=== PATIENT | female | born 1945 | race Caucasian/White ===

== ENCOUNTER 2017-06-24 15:20 | Inpatient (IN) | payer MEDICARE, MEDICAID ==
[~2017-06-24] VITALS: Ht 147.3 cm; Wt 68.0 kg
[2017-06-24 15:20] VITALS: BP_SYST 100
[~2017-06-24 15:20] MED LIST: ALBU8.5H8 INH; AZEL137S7; COLE1TAB4 PO; DOXA2TAB PO; FLUT1DIS INH; METO-442 PO; MONT10TA25 PO; TRAM50TA92 PO
[2017-06-24] MEDS ORDERED: VALS160T2 PO (15:54)
[2017-06-24] MEDS ORDERED: DICL75TA5 PO (15:54)
[2017-06-24] MEDS ORDERED: OMEP-130 PO (15:54)
[2017-06-24] MEDS ORDERED: HYDR25TA4 PO (15:54)
[2017-06-24] MEDS ORDERED: MONT10TA25 PO (15:54)
[2017-06-24] MEDS ORDERED: BECL8.7A5 INH (15:54)
[2017-06-24] MEDS ORDERED: ASCO500T20 PO (15:54)
[2017-06-24] MEDS ORDERED: ASPI-1063 PO (15:54)
[2017-06-24] MEDS ORDERED: L.RH1CAP PO (15:54)
[2017-06-24] MEDS ORDERED: NACL 0.9% 1,000 ML IV SCH (15:56)
[2017-06-24 16:30] LABS: ANION GAP 10 (5-15); BASOPHILS % (AUTO) 0.1 % (0.0-2.0); CALCIUM 8.7 mg/dL (8.4-11.0); CHLORIDE 102 mmol/L (98-107); EOSINOPHILS % (AUTO) 0.1 % (0.0-4.0); GLUCOSE 114 mg/dL (70-99); HEMATOCRIT 37.9 % (36-48); HEMOGLOBIN 12.5 g/dL (12.0-16.0); LYMPHOCYTES # (AUTO) 0.7 K/uL (1.0-5.5); LYMPHOCYTES % (AUTO) 8.9 % (20.5-51.5); MEAN CORPUSCULAR HEMOGLOBIN 28 pg (27-31); MEAN CORPUSCULAR HGB CONC 33 % (32-36); MEAN CORPUSCULAR VOLUME 86 fL (79.0-98.0); MONOCYTES # (AUTO) 0.3 K/uL (0.0-1.0); MONOCYTES % (AUTO) 4.2 % (1.7-9.3); NEUTROPHILS # (AUTO) 6.8 K/uL (1.8-7.7); NEUTROPHILS % (AUTO) 86.7 % (40.0-70.0); PLATELET COUNT (AUTO) 162 K/uL (130-430); POTASSIUM 3.7 mmol/L (3.5-5.1); RED BLOOD CELL COUNT(AUTO) 4.42 MIL/uL (4.2-6.2); SODIUM SERUM 138 mmol/L (136-145); UREA NITROGEN, BLOOD 19 mg/dL (8-21); WHITE BLOOD COUNT (AUTO) 7.8 K/uL (4.8-10.8)
[2017-06-24 16:34] LABS: PROTHROMBIN TIME 11.1 SECS (9.5-12.5)
[2017-06-24 16:35] LABS: ALANINE AMINOTRANSFERASE 26 U/L (12-78); ALBUMIN 3.1 g/dL (3.4-4.8); ASPARTATE AMINOTRANSFERASE 25 U/L (10-37); TOTAL BILIRUBIN 0.4 mg/dL (0.0-1.0)
[2017-06-24] MEDS ORDERED: IPRATROPIUM/ALBUTEROL SULFATE 3 ML AMPUL.NEB ONE (16:36)
[2017-06-24] MEDS ORDERED: IPRATROPIUM/ALBUTEROL SULFATE 3 ML AMPUL.NEB INH ONE (16:45)
[2017-06-24] MEDS ORDERED: ACETAMINOPHEN 500 MG TABLET PO ONE (17:30)
[2017-06-24] MEDS ORDERED: DIPHENHYDRAMINE INJ 50 MG/ML VIAL IVP ONE (17:30)
[2017-06-24 18:20] VITALS: BP_SYST 92
[2017-06-24] MEDS ORDERED: IPRATROPIUM BROM 0.5 MG/2.5 ML VIAL.NEB (ATROVENT) INH PRN (18:30)
[2017-06-24] MEDS ORDERED: ALBUTEROL SULFATE 0.083% 2.5 MG/3 ML VIAL.NEB INH PRN (18:30)
[2017-06-24] MEDS ORDERED: FLU VACC QS 2017-18(36MOS+)/PF 0.5 ML/SYR SYRINGE I.M. PRN (18:30)
[2017-06-24] MEDS ORDERED: LEVOFLOXACIN 500 MG/D5W 100 ML IV SCH (18:30)
[2017-06-24] MEDS ORDERED: FLUTICASONE 100 mCg/SALMETEROL 50 mCg DISKUS W.DEV INH SCH (21:00)
[2017-06-24] MEDS: ALBUTEROL SULFATE 0.083% 2.5 MG/3 ML VIAL.NEB INH SCH ×2 (21:31→23:00)
[2017-06-24] MEDS: IPRATROPIUM BROM 0.5 MG/2.5 ML VIAL.NEB (ATROVENT) INH SCH ×2 (21:32→23:00)
[2017-06-24] MEDS: methylPREDNISolone SOD SUCC/PF 62.5 MG/ML VIAL IVP SCH (21:33)
[2017-06-24] MEDS: DOXAZOSIN MESYLATE 2 MG TABLET PO SCH (21:38)
[2017-06-24 21:40] VITALS: BP_SYST 110
[2017-06-24 23:40] VITALS: BP_SYST 110
[2017-06-25] MEDS: IPRATROPIUM BROM 0.5 MG/2.5 ML VIAL.NEB (ATROVENT) INH SCH ×6 (03:00→23:00)
[2017-06-25] MEDS: ALBUTEROL SULFATE 0.083% 2.5 MG/3 ML VIAL.NEB INH SCH ×6 (03:00→23:00)
[2017-06-25 04:22] VITALS: BP_SYST 94
[2017-06-25] MEDS: methylPREDNISolone SOD SUCC/PF 62.5 MG/ML VIAL IVP SCH ×3 (05:17→21:46)
[2017-06-25 08:13] VITALS: BP_SYST 122
[2017-06-25] MEDS: VALSARTAN 160 MG TABLET (DIOVAN) PO SCH (09:43)
[2017-06-25] MEDS: MONTELUKAST 10 MG TABLET PO SCH (09:43)
[2017-06-25] MEDS: METOPROLOL TARTRATE 50 MG TABLET PO SCH (09:44)
[2017-06-25] MEDS: HYDROCHLOROTHIAZIDE 25 MG TABLET (HCTZ) PO SCH (09:44)
[2017-06-25] MEDS: FLUTICASONE/VILANTEROL 1 EACH BLST.W.DEV INH SCH (09:44)
[2017-06-25] MEDS: ASCORBIC ACID 500 MG TABLET PO SCH (09:44)
[2017-06-25] MEDS: ACETAMINOPHEN 325 MG TABLET PO PRN (11:02)
[2017-06-25 12:04] VITALS: BP_SYST 107
[2017-06-25 16:58] VITALS: BP_SYST 109
[2017-06-25] MEDS ORDERED: MONTELUKAST 10 MG TABLET PO SCH (18:00)
[2017-06-25 20:00] VITALS: BP_SYST 130
[2017-06-25] MEDS: LEVOFLOXACIN 500 MG/D5W 100 ML IV SCH (20:19)
[2017-06-25] MEDS: DOXAZOSIN MESYLATE 2 MG TABLET PO SCH (20:29)
[2017-06-26] VITALS (7 sets, daily range): BP systolic 122–135
[2017-06-26] MEDS: IPRATROPIUM BROM 0.5 MG/2.5 ML VIAL.NEB (ATROVENT) INH SCH ×6 (03:00→23:00)
[2017-06-26] MEDS: ALBUTEROL SULFATE 0.083% 2.5 MG/3 ML VIAL.NEB INH SCH ×6 (03:00→23:00)
[2017-06-26] MEDS: methylPREDNISolone SOD SUCC/PF 62.5 MG/ML VIAL IVP SCH (05:05)
[2017-06-26] MEDS: FLUTICASONE/VILANTEROL 1 EACH BLST.W.DEV INH SCH (08:05)
[2017-06-26] MEDS: VALSARTAN 160 MG TABLET (DIOVAN) PO SCH (08:06)
[2017-06-26] MEDS: ASCORBIC ACID 500 MG TABLET PO SCH (08:06)
[2017-06-26] MEDS: MONTELUKAST 10 MG TABLET PO SCH (08:06)
[2017-06-26] MEDS: HYDROCHLOROTHIAZIDE 25 MG TABLET (HCTZ) PO SCH (08:06)
[2017-06-26] MEDS: METOPROLOL TARTRATE 50 MG TABLET PO SCH (08:07)
[2017-06-26] MEDS: ENOXAPARIN SODIUM 30 MG/0.3 ML SYRINGE SUBCUT SCH (10:26)
[2017-06-26] MEDS: PANTOPRAZOLE SODIUM 40 MG TAB PO SCH (10:26)
[2017-06-26] MEDS: LACTOBACILLUS RHAMNOSUS GG 1 CAP CAPSULE PO SCH ×2 (10:26→20:53)
[2017-06-26] MEDS: methylPREDNISolone SOD SUCC 40 MG/ML VIAL IVP SCH ×2 (14:44→21:27)
[2017-06-26] MEDS: DOXAZOSIN MESYLATE 2 MG TABLET PO SCH (20:53)
[2017-06-26] MEDS: LEVOFLOXACIN 500 MG/D5W 100 ML IV SCH (21:27)
[2017-06-27] MEDS: ACETAMINOPHEN 325 MG TABLET PO PRN (01:36)
[2017-06-27] MEDS: ALBUTEROL SULFATE 0.083% 2.5 MG/3 ML VIAL.NEB INH SCH ×3 (03:00→11:00)
[2017-06-27] MEDS: IPRATROPIUM BROM 0.5 MG/2.5 ML VIAL.NEB (ATROVENT) INH SCH ×3 (03:00→11:00)
[2017-06-27 04:02] VITALS: BP_SYST 106
[2017-06-27 06:43] LABS: EOSINOPHILS % (AUTO) 0.1 % (0.0-4.0); HEMATOCRIT 30.2 % (36-48); HEMOGLOBIN 9.9 g/dL (12.0-16.0); LYMPHOCYTES # (AUTO) 0.9 K/uL (1.0-5.5); LYMPHOCYTES % (AUTO) 12.2 % (20.5-51.5); MEAN CORPUSCULAR HEMOGLOBIN 28 pg (27-31); MEAN CORPUSCULAR HGB CONC 33 % (32-36); MEAN CORPUSCULAR VOLUME 85 fL (79.0-98.0); MONOCYTES # (AUTO) 0.2 K/uL (0.0-1.0); MONOCYTES % (AUTO) 2.3 % (1.7-9.3); NEUTROPHILS # (AUTO) 6.3 K/uL (1.8-7.7); NEUTROPHILS % (AUTO) 85.4 % (40.0-70.0); PLATELET COUNT (AUTO) 152 K/uL (130-430); RED BLOOD CELL COUNT(AUTO) 3.55 MIL/uL (4.2-6.2); RED CELL DISTRIBUTION WIDTH 14.5 % (9.0-15.0); WHITE BLOOD COUNT (AUTO) 7.4 K/uL (4.8-10.8)
[2017-06-27] MEDS: methylPREDNISolone SOD SUCC 40 MG/ML VIAL IVP SCH (06:43)
[2017-06-27 07:14] LABS: ALANINE AMINOTRANSFERASE 26 U/L (12-78); ALBUMIN 2.6 g/dL (3.4-4.8); ANION GAP 10 (5-15); ASPARTATE AMINOTRANSFERASE 25 U/L (10-37); CALCIUM 8.5 mg/dL (8.4-11.0); CHLORIDE 99 mmol/L (98-107); CREATININE 1.17 mg/dL (0.55-1.30); GLUCOSE 129 mg/dL (70-99); POTASSIUM 3.8 mmol/L (3.5-5.1); SODIUM SERUM 133 mmol/L (136-145); TOTAL BILIRUBIN 0.3 mg/dL (0.0-1.0); UREA NITROGEN, BLOOD 26 mg/dL (8-21)
[2017-06-27 07:35] VITALS: BP_SYST 125
[2017-06-27] MEDS ORDERED: DIPHENOXYLATE HCL/ATROP SULF 2.5 MG TAB PO ONE (09:00)
[2017-06-27] MEDS: ENOXAPARIN SODIUM 30 MG/0.3 ML SYRINGE SUBCUT SCH (09:27)
[2017-06-27] MEDS: MONTELUKAST 10 MG TABLET PO SCH (09:28)
[2017-06-27] MEDS: LACTOBACILLUS RHAMNOSUS GG 1 CAP CAPSULE PO SCH (09:28)
[2017-06-27] MEDS: VALSARTAN 160 MG TABLET (DIOVAN) PO SCH (09:28)
[2017-06-27] MEDS: PANTOPRAZOLE SODIUM 40 MG TAB PO SCH (09:28)
[2017-06-27] MEDS: ASCORBIC ACID 500 MG TABLET PO SCH (09:29)
[2017-06-27] MEDS: METOPROLOL TARTRATE 50 MG TABLET PO SCH (09:30)
[2017-06-27] MEDS: HYDROCHLOROTHIAZIDE 25 MG TABLET (HCTZ) PO SCH (09:30)
[2017-06-27 09:59] VITALS: BP_SYST 125
[2017-06-27] MEDS: FLUTICASONE/VILANTEROL 1 EACH BLST.W.DEV INH SCH (10:06)
[2017-06-27] MEDS ORDERED: LEVO500T20 PO (10:18)
[2017-06-27] MEDS ORDERED: LACT1CAP72 PO (10:18)
[2017-06-27] MEDS ORDERED: ALBU8.5H8 INH (10:19)
[2017-06-27] MEDS ORDERED: PRED20TA PO ×2 (10:20→10:21)
[2017-06-27] MEDS ORDERED: PRED10TA PO (10:21)
[2017-06-27 12:00] VITALS: BP_SYST 134
== END 2017-06-27 11:20 | disposition home or self-care (01) | DRG 871 ==
LOC: SED 15:20 → STU 17:41
PROVIDERS: ADMIT Internal Medicine Hospice and Palliative Medicine; ATTEND Internal Medicine Hospice and Palliative Medicine
DX: A41.9 Sepsis, unspecified organism (principal); J18.9 Pneumonia, unspecified organism; J96.01 Acute respiratory failure with hypoxia; E87.2 Acidosis; J44.0 Chronic obstructive pulmonary disease with (acute) lower respiratory infection; J45.901 Unspecified asthma with (acute) exacerbation; I10 Essential (primary) hypertension; A08.4 Viral intestinal infection, unspecified; J20.9 Acute bronchitis, unspecified; M19.90 Unspecified osteoarthritis, unspecified site; E78.00 Pure hypercholesterolemia, unspecified; Z96.653 Presence of artificial knee joint, bilateral; Z88.0 Allergy status to penicillin; Z88.8 Allergy status to other drugs, medicaments and biological substances; Z90.710 Acquired absence of both cervix and uterus
CPT/HCPCS: 36415; 36600; 71010; 80053; 82803-TC; 83605; 84484; 85025; 85610-TC; 85730-TC; 87040-TC; 93005; 94640; 94760; 96361; 96365; 96375; 99285; J1030; J1200; J1650; J1956; J2930; J7030; J7050; Q2037

== ENCOUNTER 2017-12-13 15:16 | Emergency (ER) | payer OTHER, MEDICAID ==
[~2017-12-13] VITALS: Ht 152.4 cm; Wt 63.0 kg
[~2017-12-13 15:16] MED LIST changes: +ASCO500T20 PO; +ASPI-1063 PO; +ASPI81TA2 PO; +AZEL137S7 NS; +BECL8.7A5 INH; +DICL75TA5 PO; +DICLOFENAC PO; +HYDR25TA4 PO; +L.RH1CAP PO; +LACT1CAP72 PO; +LEVO500T20 PO; +OMEG300C3 PO; +OMEP-130 PO; +PATANOL OP; +PRED10TA PO; +PRED20TA PO; +VALS160T2 PO; +VITA80008 PO
[2017-12-13 15:35] VITALS: BP_SYST 132
[2017-12-13 17:58] LABS: BASOPHILS % (AUTO) 0.3 % (0.0-2.0); EOSINOPHILS # (AUTO) 0.1 K/uL (0.0-0.4); EOSINOPHILS % (AUTO) 0.8 % (0.0-4.0); HEMATOCRIT 34.3 % (36-48); LYMPHOCYTES # (AUTO) 1.8 K/uL (1.0-5.5); LYMPHOCYTES % (AUTO) 15.1 % (20.5-51.5); MEAN CORPUSCULAR HEMOGLOBIN 27 pg (27-31); MEAN CORPUSCULAR HGB CONC 32 % (32-36); MEAN CORPUSCULAR VOLUME 84 fL (79.0-98.0); MONOCYTES # (AUTO) 0.4 K/uL (0.0-1.0); MONOCYTES % (AUTO) 3.8 % (1.7-9.3); NEUTROPHILS # (AUTO) 9.5 K/uL (1.8-7.7); PLATELET COUNT (AUTO) 270 K/uL (130-430); RED BLOOD CELL COUNT(AUTO) 4.11 MIL/uL (4.2-6.2); RED CELL DISTRIBUTION WIDTH 15.4 % (9.0-15.0); WHITE BLOOD COUNT (AUTO) 11.8 K/uL (4.8-10.8)
[2017-12-13 18:54] LABS: PROTHROMBIN TIME 10.6 SECS (9.5-12.5)
[2017-12-13 21:11] LABS: ANION GAP 7 (5-15); CHLORIDE 101 mmol/L (98-107); CREATININE 1.22 mg/dL (0.55-1.30); GLUCOSE 95 mg/dL (70-99); POTASSIUM 3.8 mmol/L (3.5-5.1); SODIUM SERUM 135 mmol/L (136-145); UREA NITROGEN, BLOOD 22 mg/dL (8-21)
[2017-12-13 21:31] LABS: ALANINE AMINOTRANSFERASE 18 U/L (12-78); ALBUMIN 3.3 g/dL (3.4-4.8); ASPARTATE AMINOTRANSFERASE 12 U/L (10-37); TOTAL BILIRUBIN 0.5 mg/dL (0.0-1.0)
[2017-12-13 21:35] LABS: ALCOHOL, BLOOD < 3 mg/dL (<10)
[2017-12-13 23:21] LABS: BILIRUBIN,URINE NEGATIVE (NEGATIVE); BLOOD, URINE NEGATIVE (NEGATIVE); CLARITY/URINE CLEAR (CLEAR); COLOR,URINE YELLOW (YELLOW); GLUCOSE,URINE NEGATIVE (NEGATIVE); KETONES,URINE NEGATIVE (NEGATIVE); LEUKOCYTE ESTERASE ,URINE NEGATIVE (NEGATIVE); NITRITE, URINE NEGATIVE (NEGATIVE); PROTEIN URINE NEGATIVE (NEGATIVE); UROBILINOGEN,URINE 0.2 (0.2-1.0)
[2017-12-13 23:31] LABS: BARBITURATE, URINE NEGATIVE (NEG <=200); BENZODIAZEPINE, URINE NEGATIVE (NEG <=150); CANNABINOID, URINE NEGATIVE (NEG <=50); COCAINE, URINE NEGATIVE (NEG <=150); METHAMPHETAMINES SCREEN,URINE NEGATIVE (NEG <=500); OPIATE, URINE NEGATIVE (NEG <=100); PHENCYCLIDINE SCREEN,URINE NEGATIVE (NEG <=25); UR TRICYCLIC ANTIDEPRESSANTS NEGATIVE (NEG <=300); URINE AMPHETAMINE NEGATIVE (NEG <=500); URINE METHADONE NEGATIVE (NEG <=200); URINE OXYCODONE SCREEN NEGATIVE (NEG <=100); URINE PROPOXYPHENE SCREEN NEGATIVE (NEG <=300)
[2017-12-14 00:20] VITALS: BP_SYST 127
== END 2017-12-14 00:20 | disposition home or self-care (01) ==
LOC: SED 15:16
DX: R55 Syncope and collapse (principal); I10 Essential (primary) hypertension; J44.9 Chronic obstructive pulmonary disease, unspecified; E78.00 Pure hypercholesterolemia, unspecified; Z90.710 Acquired absence of both cervix and uterus; Z88.5 Allergy status to narcotic agent; Z88.0 Allergy status to penicillin; Z88.6 Allergy status to analgesic agent; Z79.899 Other long term (current) drug therapy; Z88.8 Allergy status to other drugs, medicaments and biological substances
CPT/HCPCS: 36415; 70450; 71045; 80053; 80307; 81003; 84484; 85025; 85610; 85730; 99285; G0482

== ENCOUNTER 2018-03-15 12:00 | Inpatient (IN) | payer OTHER, MEDICAID ==
[~2018-03-15] VITALS: Ht 152.4 cm; Wt 63.0 kg
[2018-03-15 12:08] VITALS: BP_SYST 101
[2018-03-15] MEDS ORDERED: MULT PO (12:30)
[2018-03-15] MEDS ORDERED: HYDR25TA4 PO (12:30)
[2018-03-15] MEDS ORDERED: FERR-57 PO (12:30)
[2018-03-15] MEDS ORDERED: FAMO20TA8 PO (12:30)
[2018-03-15] MEDS ORDERED: OMEG300C3 PO (12:30)
[2018-03-15] MEDS ORDERED: FLO220 INH (12:30)
[2018-03-15] MEDS ORDERED: NACL 0.9% 1,000 ML IV ONE (12:40)
[2018-03-15] MEDS ORDERED: ONDANSETRON HCL 4 MG/2 ML VIAL IVP ONE (12:45)
[2018-03-15 13:13] LABS: HEMOGLOBIN 10.8 g/dL (12.0-16.0); MEAN CORPUSCULAR HEMOGLOBIN 29 pg (27-31); MEAN CORPUSCULAR HGB CONC 34 % (32-36); MEAN CORPUSCULAR VOLUME 85 fL (79.0-98.0); PLATELET COUNT (AUTO) 236 K/uL (130-430); RED BLOOD CELL COUNT(AUTO) 3.75 MIL/uL (4.2-6.2); RED CELL DISTRIBUTION WIDTH 15.7 % (9.0-15.0)
[2018-03-15 13:21] LABS: BILIRUBIN,URINE NEGATIVE (NEGATIVE); BLOOD, URINE NEGATIVE (NEGATIVE); CLARITY/URINE CLEAR (CLEAR); COLOR,URINE YELLOW (YELLOW); GLUCOSE,URINE NEGATIVE (NEGATIVE); KETONES,URINE TRACE (NEGATIVE); LEUKOCYTE ESTERASE ,URINE NEGATIVE (NEGATIVE); NITRITE, URINE NEGATIVE (NEGATIVE); PH,URINE 5.5 (5.0-8.0); PROTEIN URINE NEGATIVE (NEGATIVE); UROBILINOGEN,URINE 0.2 (0.2-1.0)
[2018-03-15 13:24] LABS: ANION GAP 9 (5-15); CALCIUM 8.4 mg/dL (8.4-11.0); CHLORIDE 93 mmol/L (98-107); CREATININE 1.29 mg/dL (0.55-1.30); GLUCOSE 122 mg/dL (70-99); POTASSIUM 3.7 mmol/L (3.5-5.1); SODIUM SERUM 129 mmol/L (136-145); UREA NITROGEN, BLOOD 22 mg/dL (8-21)
[2018-03-15 13:28] LABS: ALANINE AMINOTRANSFERASE 13 U/L (12-78); ALBUMIN 2.9 g/dL (3.4-4.8); ASPARTATE AMINOTRANSFERASE 13 U/L (10-37); LIPASE 54 U/L (73-393); TOTAL BILIRUBIN 1.2 mg/dL (0.0-1.0)
[2018-03-15 13:33] LABS: BAND % (MANUAL) 18 % (0-6); BASOPHILS % (MANUAL) 0 % (0-2); EOSINOPHILS % (MANUAL) 0 % (0-7); LYMPHOCYTES % (MANUAL) 5 % (20-46); MONOCYTES % (MANUAL) 1 % (0-11)
[2018-03-15 14:41] VITALS: BP_SYST 128
[2018-03-15] MEDS ORDERED: ALBUTEROL SULFATE 0.083% 2.5 MG/3 ML VIAL.NEB INH PRN (16:15)
[2018-03-15] MEDS ORDERED: IPRATROPIUM BROM 0.5 MG/2.5 ML VIAL.NEB (ATROVENT) INH PRN (16:15)
[2018-03-15 16:19] VITALS: BP_SYST 128
[2018-03-15 16:35] VITALS: BP_SYST 95
[2018-03-15] MEDS ORDERED: ONDANSETRON HCL 4 MG/2 ML VIAL IVP PRN (17:30)
[2018-03-15] MEDS: IPRATROPIUM BROM 0.5 MG/2.5 ML VIAL.NEB (ATROVENT) INH SCH (19:42)
[2018-03-15] MEDS: ALBUTEROL SULFATE 0.083% 2.5 MG/3 ML VIAL.NEB INH SCH (19:42)
[2018-03-15 20:00] VITALS: BP_SYST 99
[2018-03-15] MEDS: VALSARTAN 160 MG TABLET (DIOVAN) PO SCH (20:46)
[2018-03-16 03:22] VITALS: BP_SYST 117
[2018-03-16] MEDS: IPRATROPIUM BROM 0.5 MG/2.5 ML VIAL.NEB (ATROVENT) INH SCH ×3 (07:03→19:39)
[2018-03-16] MEDS: ALBUTEROL SULFATE 0.083% 2.5 MG/3 ML VIAL.NEB INH SCH ×3 (07:03→19:39)
[2018-03-16 08:00] VITALS: BP_SYST 126
[2018-03-16] MEDS: MULTIVITAMINS TAB 1 TABLET PO SCH (08:17)
[2018-03-16] MEDS: ASPIRIN 81 MG TABLET(ECOTRIN) PO SCH (08:17)
[2018-03-16] MEDS: LEVOFLOXACIN 500 MG TABLET PO SCH (08:17)
[2018-03-16] MEDS: FAMOTIDINE 20 MG TABLET PO SCH (08:17)
[2018-03-16] MEDS: VALSARTAN 160 MG TABLET (DIOVAN) PO SCH ×2 (08:17→20:36)
[2018-03-16] MEDS: METOPROLOL TARTRATE 50 MG TABLET PO SCH (08:18)
[2018-03-16] MEDS: HYDROCHLOROTHIAZIDE 25 MG TABLET (HCTZ) PO SCH (08:18)
[2018-03-16 12:28] VITALS: BP_SYST 100
[2018-03-16 15:19] VITALS: BP_SYST 101
[2018-03-16] MEDS: MONTELUKAST 10 MG TABLET PO SCH (17:13)
[2018-03-16 20:00] VITALS: BP_SYST 132
[2018-03-16] MEDS: ZOLPIDEM TARTRATE 5 MG TABLET PO SCH (20:35)
[2018-03-17] MEDS: IPRATROPIUM BROM 0.5 MG/2.5 ML VIAL.NEB (ATROVENT) INH SCH ×4 (00:34→20:10)
[2018-03-17] MEDS: ALBUTEROL SULFATE 0.083% 2.5 MG/3 ML VIAL.NEB INH SCH ×4 (00:34→20:09)
[2018-03-17] MEDS ORDERED: ALPRAZolam 0.25 MG TABLET PO PRN (01:15)
[2018-03-17 03:07] VITALS: BP_SYST 149
[2018-03-17 06:14] LABS: BASOPHILS % (AUTO) 0.1 % (0.0-2.0); EOSINOPHILS % (AUTO) 0.5 % (0.0-4.0); HEMATOCRIT 27.8 % (36-48); HEMOGLOBIN 9.3 g/dL (12.0-16.0); LYMPHOCYTES # (AUTO) 1.1 K/uL (1.0-5.5); LYMPHOCYTES % (AUTO) 12.1 % (20.5-51.5); MEAN CORPUSCULAR HEMOGLOBIN 28 pg (27-31); MEAN CORPUSCULAR HGB CONC 33 % (32-36); MEAN CORPUSCULAR VOLUME 85 fL (79.0-98.0); MONOCYTES # (AUTO) 0.4 K/uL (0.0-1.0); MONOCYTES % (AUTO) 4.6 % (1.7-9.3); NEUTROPHILS # (AUTO) 7.2 K/uL (1.8-7.7); NEUTROPHILS % (AUTO) 82.7 % (40.0-70.0); PLATELET COUNT (AUTO) 202 K/uL (130-430); RED BLOOD CELL COUNT(AUTO) 3.28 MIL/uL (4.2-6.2); RED CELL DISTRIBUTION WIDTH 15.6 % (9.0-15.0); WHITE BLOOD COUNT (AUTO) 8.7 K/uL (4.8-10.8)
[2018-03-17 06:57] LABS: ANION GAP 5 (5-15); CALCIUM 8.8 mg/dL (8.4-11.0); CHLORIDE 101 mmol/L (98-107); CREATININE 1.05 mg/dL (0.55-1.30); GLUCOSE 122 mg/dL (70-99); POTASSIUM 3.8 mmol/L (3.5-5.1); SODIUM SERUM 134 mmol/L (136-145); UREA NITROGEN, BLOOD 14 mg/dL (8-21)
[2018-03-17 08:00] VITALS: BP_SYST 147
[2018-03-17] MEDS: VALSARTAN 160 MG TABLET (DIOVAN) PO SCH ×2 (08:17→22:10)
[2018-03-17] MEDS: MULTIVITAMINS TAB 1 TABLET PO SCH (08:18)
[2018-03-17] MEDS: HYDROCHLOROTHIAZIDE 25 MG TABLET (HCTZ) PO SCH (08:18)
[2018-03-17] MEDS: ASPIRIN 81 MG TABLET(ECOTRIN) PO SCH (08:18)
[2018-03-17] MEDS: FAMOTIDINE 20 MG TABLET PO SCH (08:18)
[2018-03-17] MEDS: LEVOFLOXACIN 500 MG TABLET PO SCH (08:18)
[2018-03-17] MEDS: METOPROLOL TARTRATE 50 MG TABLET PO SCH (08:19)
[2018-03-17 12:45] VITALS: BP_SYST 130
[2018-03-17 16:59] VITALS: BP_SYST 144
[2018-03-17] MEDS: FLUTICASONE PROPIONATE 50 mCg/SPRAY 16 GM NS SCH ×2 (17:32→22:11)
[2018-03-17] MEDS: MONTELUKAST 10 MG TABLET PO SCH (17:32)
[2018-03-17 20:16] VITALS: BP_SYST 133
[2018-03-17] MEDS: ZOLPIDEM TARTRATE 5 MG TABLET PO SCH (22:10)
[2018-03-18 00:23] VITALS: BP_SYST 113
[2018-03-18] MEDS: ALBUTEROL SULFATE 0.083% 2.5 MG/3 ML VIAL.NEB INH SCH ×3 (01:34→13:57)
[2018-03-18] MEDS: IPRATROPIUM BROM 0.5 MG/2.5 ML VIAL.NEB (ATROVENT) INH SCH ×3 (01:34→13:58)
[2018-03-18 08:00] VITALS: BP_SYST 126
[2018-03-18] MEDS: MULTIVITAMINS TAB 1 TABLET PO SCH (09:12)
[2018-03-18] MEDS: LEVOFLOXACIN 500 MG TABLET PO SCH (09:13)
[2018-03-18] MEDS: HYDROCHLOROTHIAZIDE 25 MG TABLET (HCTZ) PO SCH (09:13)
[2018-03-18] MEDS: FAMOTIDINE 20 MG TABLET PO SCH (09:14)
[2018-03-18] MEDS: METOPROLOL TARTRATE 50 MG TABLET PO SCH (09:14)
[2018-03-18] MEDS: ASPIRIN 81 MG TABLET(ECOTRIN) PO SCH (09:14)
[2018-03-18] MEDS: VALSARTAN 160 MG TABLET (DIOVAN) PO SCH (09:14)
[2018-03-18] MEDS: FLUTICASONE PROPIONATE 50 mCg/SPRAY 16 GM NS SCH (09:15)
[2018-03-18 12:35] VITALS: BP_SYST 109
[2018-03-18 16:36] VITALS: BP_SYST 120
[2018-03-18] MEDS ORDERED: LEVO500T20 PO (16:42)
[2018-03-18 16:43] VITALS: BP_SYST 119
[2018-03-18 17:35] VITALS: BP_SYST 119
[2018-03-18] MEDS: MONTELUKAST 10 MG TABLET PO SCH (17:54)
== END 2018-03-18 19:30 | disposition home or self-care (01) | DRG 871 ==
LOC: SED 12:00 → SMU 14:13
PROVIDERS: ADMIT Internal Medicine Hospice and Palliative Medicine; ATTEND Internal Medicine Hospice and Palliative Medicine
DX: A41.9 Sepsis, unspecified organism (principal); J69.0 Pneumonitis due to inhalation of food and vomit; E87.1 Hypo-osmolality and hyponatremia; E78.5 Hyperlipidemia, unspecified; Z96.653 Presence of artificial knee joint, bilateral; D64.9 Anemia, unspecified; I10 Essential (primary) hypertension; N28.1 Cyst of kidney, acquired; R09.02 Hypoxemia; J44.9 Chronic obstructive pulmonary disease, unspecified; K57.90 Diverticulosis of intestine, part unspecified, without perforation or abscess without bleeding; M19.90 Unspecified osteoarthritis, unspecified site; K44.9 Diaphragmatic hernia without obstruction or gangrene; Z90.710 Acquired absence of both cervix and uterus; Z88.0 Allergy status to penicillin; Z88.6 Allergy status to analgesic agent; Z88.1 Allergy status to other antibiotic agents; Z88.5 Allergy status to narcotic agent; Z88.8 Allergy status to other drugs, medicaments and biological substances; Z79.899 Other long term (current) drug therapy; Z79.82 Long term (current) use of aspirin; Z79.2 Long term (current) use of antibiotics
CPT/HCPCS: 36415; 71045; 80048; 80053; 81003; 83605; 83690-TC; 84484; 85007; 85025; 85027; 87040-TC; 87086; 93005; 94640; 94760; 96361; 96365; 96375; 99291; J1956; J2405; J7030; J7613

== ENCOUNTER 2019-10-06 10:05 | Inpatient (IN) | payer OTHER, MEDICAID ==
[~2019-10-06] VITALS: Ht 152.4 cm; Wt 77.1 kg
[~2019-10-06 10:05] MED LIST changes: -ASPI-1063 PO; +ASPI-1153 PO; -ASPI81TA2 PO; -AZEL137S7; -BECL8.7A5 INH; -DICL75TA5 PO; -DICLOFENAC PO; -DOXA2TAB PO; +FAMO20TA8 PO; +FERR-57 PO; +FLO220 INH; -FLUT1DIS INH; -LACT1CAP72 PO; +MULT PO; -OMEP-130 PO; -PRED10TA PO; -PRED20TA PO
[2019-10-06 10:32] VITALS: BP_SYST 159
[2019-10-06] MEDS ORDERED: metroNIDAZOLE 500 mg/NS 100 ML IV ONE (10:45)
[2019-10-06] MEDS ORDERED: CLINDAMYCIN 900 mg/50mL D5W 50 ML IV ONE (10:45)
[2019-10-06 10:56] LABS: BASOPHILS # (AUTO) 0.1 K/uL (0.0-0.2); BASOPHILS % (AUTO) 0.6 % (0.0-2.0); EOSINOPHILS # (AUTO) 0.1 K/uL (0.0-0.4); EOSINOPHILS % (AUTO) 0.9 % (0.0-4.0); HEMATOCRIT 33.1 % (36-48); HEMOGLOBIN 10.6 g/dL (12.0-16.0); LYMPHOCYTES # (AUTO) 2.3 K/uL (1.0-5.5); LYMPHOCYTES % (AUTO) 27.1 % (20.5-51.5); MEAN CORPUSCULAR HEMOGLOBIN 25 pg (27-31); MEAN CORPUSCULAR HGB CONC 32 % (32-36); MEAN CORPUSCULAR VOLUME 77 fL (79.0-98.0); MONOCYTES # (AUTO) 0.4 K/uL (0.0-1.0); NEUTROPHILS # (AUTO) 5.6 K/uL (1.8-7.7); NEUTROPHILS % (AUTO) 66.4 % (40.0-70.0); PLATELET COUNT (AUTO) 194 K/uL (130-430); RED CELL DISTRIBUTION WIDTH 18.8 % (9.0-15.0); WHITE BLOOD COUNT (AUTO) 8.5 K/uL (4.8-10.8)
[2019-10-06 11:13] LABS: PROTHROMBIN TIME 10.2 SECS (9.5-12.5)
[2019-10-06 11:25] LABS: ANION GAP 6 (5-15); CALCIUM 8.2 mg/dL (8.4-11.0); CHLORIDE 104 mmol/L (98-107); CREATININE 0.96 mg/dL (0.55-1.30); GLUCOSE 87 mg/dL (70-99); POTASSIUM 3.7 mmol/L (3.5-5.1); SODIUM SERUM 140 mmol/L (136-145); UREA NITROGEN, BLOOD 25 mg/dL (8-21)
[2019-10-06 11:31] LABS: ALANINE AMINOTRANSFERASE 26 U/L (12-78); ALBUMIN 3.3 g/dL (3.4-4.8); ASPARTATE AMINOTRANSFERASE 15 U/L (10-37); TOTAL BILIRUBIN 0.8 mg/dL (0.0-1.0)
[2019-10-06] MEDS ORDERED: D5NS 1,000 ML IV ONE (15:15)
[2019-10-06] MEDS ORDERED: ONDANSETRON HCL 4 MG/2 ML VIAL IVP PRN (18:30)
[2019-10-06] MEDS ORDERED: MORPHINE 4 MG/ML INJ. SYRINGE IVP PRN (18:30)
[2019-10-06] MEDS ORDERED: MORPHINE 2 MG/ML INJ. SYRINGE IVP PRN (18:30)
[2019-10-06] MEDS ORDERED: METOCLOPRAMIDE HCL 10 MG/2 ML VIAL IVP PRN (18:30)
[2019-10-06] MEDS ORDERED: ACETAMINOPHEN 500 MG TABLET PO ONE (22:00)
[2019-10-06] MEDS ORDERED: ACETAMINOPHEN 500 MG TABLET ONE (22:15)
[2019-10-06 22:26] VITALS: BP_SYST 132
[2019-10-07] MEDS ORDERED: METOPROLOL TARTRATE 50 MG TABLET PO SCH (09:00)
[2019-10-07] MEDS ORDERED: MONTELUKAST 10 MG TABLET PO SCH (18:00)
== END 2019-10-06 22:26 | disposition home or self-care (01) | DRG 395 ==
LOC: SED 10:05 → SMU 15:11
PROVIDERS: ADMIT Internal Medicine Hospice and Palliative Medicine; ATTEND Internal Medicine Hospice and Palliative Medicine
DX: K40.31 Unilateral inguinal hernia, with obstruction, without gangrene, recurrent (principal); J44.9 Chronic obstructive pulmonary disease, unspecified; E78.00 Pure hypercholesterolemia, unspecified; I10 Essential (primary) hypertension; K64.8 Other hemorrhoids; M19.90 Unspecified osteoarthritis, unspecified site; Z79.899 Other long term (current) drug therapy; Z79.82 Long term (current) use of aspirin; Z88.0 Allergy status to penicillin; Z88.5 Allergy status to narcotic agent; Z88.1 Allergy status to other antibiotic agents; Z88.8 Allergy status to other drugs, medicaments and biological substances
CPT/HCPCS: 36415; 80053; 83605; 84484; 85025; 85610-TC; 85730-TC; 87040-TC; 93005; 96365; 96366; 96367; 99285; J1956; J3490; J7042

== ENCOUNTER 2019-10-11 18:50 | Emergency (ER) | payer OTHER, MEDICAID ==
[~2019-10-11] VITALS: Ht 152.4 cm; Wt 90.7 kg
[2019-10-11 19:13] VITALS: BP_SYST 159
--- NOTE | 2019-10-11 19:24 | NUR ---
Patient triaged and placed in waiting room. VSS and patient appears in no acute distress at this time. Accompanied by son and daughter in law, awaiting available bed, and MD notified of need for MSE.
[2019-10-11 20:39] LABS: BASOPHILS % (AUTO) 0.4 % (0.0-2.0); EOSINOPHILS % (AUTO) 0.6 % (0.0-4.0); HEMOGLOBIN 10.6 g/dL (12.0-16.0); LYMPHOCYTES # (AUTO) 1.4 K/uL (1.0-5.5); LYMPHOCYTES % (AUTO) 17.4 % (20.5-51.5); MEAN CORPUSCULAR HEMOGLOBIN 25 pg (27-31); MEAN CORPUSCULAR HGB CONC 32 % (32-36); MEAN CORPUSCULAR VOLUME 77 fL (79.0-98.0); MONOCYTES # (AUTO) 0.4 K/uL (0.0-1.0); MONOCYTES % (AUTO) 4.7 % (1.7-9.3); NEUTROPHILS # (AUTO) 6.4 K/uL (1.8-7.7); NEUTROPHILS % (AUTO) 76.9 % (40.0-70.0); PLATELET COUNT (AUTO) 204 K/uL (130-430); RED BLOOD CELL COUNT(AUTO) 4.27 MIL/uL (4.2-6.2); RED CELL DISTRIBUTION WIDTH 19.2 % (9.0-15.0); WHITE BLOOD COUNT (AUTO) 8.3 K/uL (4.8-10.8)
--- NOTE | 2019-10-11 20:43 | NUR ---
Placed in room 3 . Placed on cardiac sonographer, blood pressure machine and pulse oximeter. To gown for exam. Side rails up. Report given to [facility].
[2019-10-11 20:52] LABS: ANION GAP 6 (5-15); CALCIUM 8.6 mg/dL (8.4-11.0); CHLORIDE 104 mmol/L (98-107); CREATININE 1.29 mg/dL (0.55-1.30); GLUCOSE 93 mg/dL (70-99); SODIUM SERUM 138 mmol/L (136-145); UREA NITROGEN, BLOOD 26 mg/dL (8-21)
[2019-10-11 20:54] LABS: ALANINE AMINOTRANSFERASE 27 U/L (12-78); ALBUMIN 3.3 g/dL (3.4-4.8); ASPARTATE AMINOTRANSFERASE 17 U/L (10-37); LIPASE 123 U/L (73-393); TOTAL BILIRUBIN 0.3 mg/dL (0.0-1.0)
--- NOTE | 2019-10-11 21:01 | NUR ---
Pt AAOx4 presents to ED via wheelchair c/o 05/06 pain to RLQ abdomen possibly r/t R inguinal hernia diagnosed x 5 years ago. Pt was scheduled to have surgery x [address] Anna, part of Dr. Esquivel's office. However, the complete team was not available for the operation and was rescheduled. Pt could not tolerate pain while waiting for scheduling. Pain increases upon palpation. Last meal was 4pm tonight. Last urine output at 2044. No other injuries/complaints per pt/noted. Son at bedside. Will continue to monitor.
[2019-10-11 21:19] LABS: BILIRUBIN,URINE NEGATIVE (NEGATIVE); BLOOD, URINE NEGATIVE (NEGATIVE); CLARITY/URINE CLEAR (CLEAR); COLOR,URINE YELLOW (YELLOW); GLUCOSE,URINE NEGATIVE (NEGATIVE); KETONES,URINE NEGATIVE (NEGATIVE); LEUKOCYTE ESTERASE ,URINE TRACE (NEGATIVE); NITRITE, URINE NEGATIVE (NEGATIVE); PROTEIN URINE NEGATIVE (NEGATIVE); UROBILINOGEN,URINE 0.2 (0.2-1.0)
[2019-10-11 21:36] LABS: BACTERIA,URINE FEW /HPF (None Seen); RBC,URINE 0-3 /HPF (0-3)
--- NOTE | 2019-10-11 21:40 | NUR ---
Ploi carreno in [facility] - 10/11/19 at 2148 by [email or web address] CHRISTOPHER Thrasher at bedside examining patient.
--- NOTE | 2019-10-11 21:41 | NUR ---
ER Dr. Thrasher at bedside examining patient.
[2019-10-11] MEDS ORDERED: traMADol HCL HCL 50 MG TABLET (ULTRAM) PO ONE (22:00)
[2019-10-11 22:20] VITALS: BP_SYST 150
--- NOTE | 2019-10-11 22:20 | NUR ---
Patient given written and verbal discharge instructions and verbalizes understanding. ER MD Dr. Thrasher discussed with patient the results and treatment provided. Patient in stable condition. ID arm band removed. Rx Cipro and Tramadol given. Patient educated on pain management, antibiotic regimen, and to follow up with PMD. Pain Scale 9/10. Opportunity for questions provided and answered. Medication side effect fact sheet provided.
== END 2019-10-11 22:20 | disposition home or self-care (01) ==
LOC: SED 18:50
DX: K40.90 Unilateral inguinal hernia, without obstruction or gangrene, not specified as recurrent (principal); N39.0 Urinary tract infection, site not specified; J44.9 Chronic obstructive pulmonary disease, unspecified; I10 Essential (primary) hypertension; Z88.0 Allergy status to penicillin; Z88.5 Allergy status to narcotic agent; Z88.6 Allergy status to analgesic agent; Z88.1 Allergy status to other antibiotic agents; Z79.899 Other long term (current) drug therapy; Z79.82 Long term (current) use of aspirin
CPT/HCPCS: 36415; 80053; 81000-TC; 83690-TC; 85025; 87086; 99284

== ENCOUNTER 2019-10-24 08:50 | Day surgery (SDC) | payer OTHER, MEDICAID ==
[~2019-10-24] VITALS: Ht 149.9 cm; Wt 79.8 kg
[~2019-10-24 08:50] MED LIST changes: +CLINDAMYCIN 600 mg/50mL D5W 50 ML IV ONE
[2019-10-24] MEDS ORDERED: ALBUTEROL SULFATE 0.083% 2.5 MG/3 ML VIAL.NEB INH ONE ×2 (10:45→11:09)
[2019-10-24] MEDS ORDERED: DEXAMETHASONE SOD PHOSPHATE 4 MG/ML VIAL IVP ONE (11:19)
[2019-10-24] MEDS ORDERED: LR 1,000 ML IV.SOLN IV ONE (11:19)
[2019-10-24] MEDS ORDERED: ePHEDrine sulfate 50 MG/ML VIAL IVP ONE (11:19)
[2019-10-24] MEDS ORDERED: methylPREDNISolone SOD SUCC/PF 62.5 MG/ML VIAL IVP ONE (11:19)
[2019-10-24] MEDS ORDERED: ROCURONIUM BROMIDE 10 MG/ML (ZEMURON) IV ONE (11:19)
[2019-10-24] MEDS ORDERED: SUCCINYLCHOLINE CHLORIDE 20 MG/ML(QUELICIN) IVP ONE (11:19)
[2019-10-24] MEDS ORDERED: PIPERACILLIN/TAZOBACTAM 3.375 GM/VIAL (ZOSYN) IV ONE (11:19)
[2019-10-24] MEDS ORDERED: WATER FOR IRRIGATION,STERILE 1,000 ML IRRIG.SOLN IR ONE (11:19)
[2019-10-24] MEDS ORDERED: ONDANSETRON HCL 4 MG/2 ML VIAL IVP ONE (11:19)
[2019-10-24] MEDS ORDERED: ISOFLURANE 15 MIN GAS INH ONE (11:19)
[2019-10-24] MEDS ORDERED: PROPOFOL 200MG/ 20ML VIAL (DIPRIVAN) IV ONE (11:19)
[2019-10-24] MEDS ORDERED: fentaNYL CITRATE/PF 100 MCG/2 ML AMP IVP ONE (11:19)
[2019-10-24] MEDS ORDERED: ONDANSETRON HCL 4 MG/2 ML VIAL IVP PRN ×2 (12:15→18:00)
[2019-10-24] MEDS ORDERED: POLYMYXIN 500,000/BACIT.10,000 UNITS in NS IRR 1 L IR ONE (12:51)
[2019-10-24] MEDS: fentaNYL CITRATE/PF 100 MCG/2 ML AMP IVP PRN ×2 (15:05→15:15)
[2019-10-24] MEDS ORDERED: ONDANSETRON HCL 4 MG/2 ML VIAL ONE ×2 (15:20→18:37)
[2019-10-24] MEDS ORDERED: fentaNYL CITRATE/PF 100 MCG/2 ML AMP ONE (15:23)
[2019-10-24] MEDS ORDERED: PROMETHAZINE INJ.Non-Formulary 25 MG/ML AMP IVP ONE (16:00)
[2019-10-24] MEDS ORDERED: HYDROcodone/ACETAMIN 5-325 MG TAB (NORCO/ VICODIN) PO ONE (18:00)
[2019-10-24] MEDS ORDERED: fentaNYL CITRATE/PF 100 MCG/2 ML AMP IVP PRN (18:00)
[2019-10-24] MEDS ORDERED: HYDROcodone/ACETAMIN 5-325 MG TAB (NORCO/ VICODIN) PO PRN (18:00)
[2019-10-24] MEDS ORDERED: ALBUTEROL MDI INHALATION 8 GM INH INH PRN (18:15)
[2019-10-24] MEDS ORDERED: traMADol HCL HCL 50 MG TABLET (ULTRAM) PO PRN (18:15)
[2019-10-24] MEDS ORDERED: HYDROcodone/ACETAMIN 5-325 MG TAB (NORCO/ VICODIN) ONE (18:17)
--- NOTE | 2019-10-24 18:30 | NUR ---
received patient from surgery alert oriented x3 resp even and unlabored SPo2 94% on room air. encouraged and educated on use of I/S Currently up to 500L. Abdomen with decreased bowel sounds to all quad. abdomen with x3 small non sutchered wounds with scant serosanginous drainage. VSS no s&S of acute cardiac or resp distress. call light within reach hob up 35 degrees. son is at bedside. bp 131/75 p88 7/10 temp 98
[2019-10-24] MEDS ORDERED: BUDESONIDE 0.5 MG/2 ML AMPUL.NEB INH SCH (19:00)
--- NOTE | 2019-10-24 19:00 | NUR ---
OPENING NOTES Receive report from morning shift nurse. Patient post op robotic right inguinal hernia repair. Patient AOx4, family at bedside. No signs of respiratory distress noted. Denies pain and discomfort at this time. Morning shift nurse verbalized that o2 saturation goes down to 89% when patient is not deep breathing on room air. Upon assessment patient is satting at 93% room air Patient educated the purpose and benefits and IS and breathing exercise post op surgery, patient verbalized understanding. IV site, patency noted. Call light within reach, patient educated to use call light when assistance is needed, pt verbalized understanding. Bed locked and in lowest position. Safety precautions in place. Will continue to monitor.
[2019-10-24] MEDS: NORMAL SALINE 5 ML DISP.SYRIN IVF SCH (20:52)
--- NOTE | 2019-10-24 20:52 | NUR ---
MED PASS Due medications in given at this time. Patient educated on purpose and benefits of Neurontin. Patient verbalized understanding. NO signs of respiratory distress and discomfort noted. Breathing even an unlabored. Safety precautions in place. Will continue to monitor patient.
[2019-10-24] MEDS ORDERED: FLUTICASONE PROPIONATE INH SCH (21:00)
[2019-10-24] MEDS ORDERED: VALSARTAN 160 MG TABLET (DIOVAN) PO SCH (21:00)
[2019-10-24] MEDS ORDERED: GABAPENTIN 300 MG CAPSULE PO SCH (21:00)
[2019-10-24 21:02] VITALS: BP_SYST 120
--- NOTE | 2019-10-24 23:30 | NUR ---
RN ROUNDS Patient asleep at this time. No signs of respiratory distress and discomfort noted. Breathing even and unlabored. On 2L of oxygen via nasal cannula, attached and secured. HOB raised. Call light within reach Safety precautions in place. Will continue to monitor patient.
[2019-10-25] VITALS: BP_SYST 112
[2019-10-25 03:33] VITALS: BP_SYST 120
[2019-10-25] MEDS: NORMAL SALINE 5 ML DISP.SYRIN IVF SCH (06:19)
--- NOTE | 2019-10-25 06:29 | NUR ---
CLOSING NOTES Patient awake. No signs of respiratory distress noted. Denies pain and discomfort at this time. IV site, patency noted. Breathing even and unlabored. Call light within reach.Bed locked and in lowest position. Safety precautions in place. All needs met throughout the shift. Will continue to monitor until endorsed to oncoming shift nurse for continuity of care.
--- NOTE | 2019-10-25 07:29 | NUR ---
Am Rounds: Received report from night nurse [place],patient lying on the bed. Call light with in reach. Bed locked at lowest position. Encourage to call for assistance when getting out on the bed.Patient understand the instructions given. No acute distress this time.
[2019-10-25 08:10] VITALS: BP_SYST 104
[2019-10-25] MEDS ORDERED: METOPROLOL TARTRATE 50 MG TABLET PO SCH (09:00)
[2019-10-25] MEDS ORDERED: HYDROCHLOROTHIAZIDE 25 MG TABLET (HCTZ) PO SCH (09:00)
[2019-10-25] MEDS ORDERED: ENOXAPARIN SODIUM 40 MG/0.4 ML SYRINGE SUBCUT SCH (09:00)
[2019-10-25] MEDS ORDERED: LOSARTAN POTASSIUM 50 MG TABLET (COZAAR) PO SCH (09:00)
[2019-10-25] MEDS ORDERED: FAMOTIDINE 20 MG TABLET PO SCH (09:00)
[2019-10-25] MEDS ORDERED: ASPIRIN 81 MG TABLET(ECOTRIN) PO SCH (09:00)
[2019-10-25] MEDS ORDERED: MULTIVITAMINS TAB 1 TABLET PO SCH (09:00)
--- NOTE | 2019-10-25 09:00 | NUR ---
Rn Rounds: Patient ambulated to the toilet. With steady gait. stable.
[2019-10-25 12:00] VITALS: BP_SYST 93
--- NOTE | 2019-10-25 12:00 | NUR ---
lunch: Patient having lunch. No complained made.
[2019-10-25 15:52] VITALS: BP_SYST 93
[2019-10-25 17:13] VITALS: BP_SYST 116
--- NOTE | 2019-10-25 17:45 | NUR ---
D/C Patient Patient given medication reconciliation form and D/C instructions. Exit Care provided. Patient verbalized understanding. MD discussed with patient the results and treatment provided. Ambulatory with steady gait for discharge to home. Patient in stable condition, ID band removed. IV catheter removed, intact and dressing applied, no active bleeding. Rx of Staley given. Patient educated on pain management. All belongings sent with patient.
[2019-10-25] MEDS ORDERED: MONTELUKAST 10 MG TABLET PO SCH (18:00)
== END 2019-10-25 17:45 | disposition home or self-care (01) ==
LOC: SMU 08:50 → SDS 08:50 → SMU 20:52 → SDS 10-25 17:45
PROVIDERS: ATTEND Surgery
DX: K40.31 Unilateral inguinal hernia, with obstruction, without gangrene, recurrent (principal); M19.90 Unspecified osteoarthritis, unspecified site; E66.9 Obesity, unspecified; J45.909 Unspecified asthma, uncomplicated; K21.9 Gastro-esophageal reflux disease without esophagitis; I10 Essential (primary) hypertension; Z79.899 Other long term (current) drug therapy; Z88.0 Allergy status to penicillin; Z88.5 Allergy status to narcotic agent; Z88.1 Allergy status to other antibiotic agents; Z88.8 Allergy status to other drugs, medicaments and biological substances; Z96.659 Presence of unspecified artificial knee joint; Z90.710 Acquired absence of both cervix and uterus
CPT/HCPCS: 49651; 94640; 94760; C1727; C1781; J0330; J1100; J1650; J2405; J2543; J2704; J2930; J3010; J3490; J7120; J7613; S2900

== ENCOUNTER 2020-01-25 18:37 | Inpatient (IN) | payer OTHER, MEDICAID ==
[~2020-01-25] VITALS: Ht 149.9 cm; Wt 82.3 kg
[~2020-01-25 18:37] MED LIST changes: -CLINDAMYCIN 600 mg/50mL D5W 50 ML IV ONE
[2020-01-25 19:10] VITALS: BP_SYST 130
[2020-01-25 19:40] LABS: BASOPHILS % (AUTO) 0.1 % (0.0-2.0); HEMATOCRIT 31.9 % (36-48); HEMOGLOBIN 10.3 g/dL (12.0-16.0); LYMPHOCYTES # (AUTO) 0.7 K/uL (1.0-5.5); LYMPHOCYTES % (AUTO) 6.5 % (20.5-51.5); MEAN CORPUSCULAR HEMOGLOBIN 26 pg (27-31); MEAN CORPUSCULAR HGB CONC 32 % (32-36); MEAN CORPUSCULAR VOLUME 79 fL (79.0-98.0); MONOCYTES # (AUTO) 0.1 K/uL (0.0-1.0); MONOCYTES % (AUTO) 0.8 % (1.7-9.3); NEUTROPHILS % (AUTO) 92.6 % (40.0-70.0); PLATELET COUNT (AUTO) 219 K/uL (130-430); RED BLOOD CELL COUNT(AUTO) 4.04 MIL/uL (4.2-6.2); RED CELL DISTRIBUTION WIDTH 17.4 % (9.0-15.0); WHITE BLOOD COUNT (AUTO) 10.8 K/uL (4.8-10.8)
[2020-01-25 19:42] LABS: ANION GAP 13 (5-15); CHLORIDE 102 mmol/L (98-107); CREATININE 1.45 mg/dL (0.55-1.30); GLUCOSE 258 mg/dL (70-99); POTASSIUM 3.8 mmol/L (3.5-5.1); SODIUM SERUM 136 mmol/L (136-145); UREA NITROGEN, BLOOD 29 mg/dL (8-21)
[2020-01-25] MEDS ORDERED: methylPREDNISolone SOD SUCC/PF 62.5 MG/ML VIAL IVP ONE (19:45)
[2020-01-25] MEDS ORDERED: IPRATROPIUM BROM 0.5 MG/2.5 ML VIAL.NEB (ATROVENT) INH ONE (19:45)
[2020-01-25] MEDS ORDERED: ALBUTEROL SULFATE 0.083% 2.5 MG/3 ML VIAL.NEB INH ONE (19:45)
[2020-01-25 19:48] LABS: ALANINE AMINOTRANSFERASE 25 U/L (12-78); ALBUMIN 3.1 g/dL (3.4-4.8); ASPARTATE AMINOTRANSFERASE 18 U/L (10-37); TOTAL BILIRUBIN 0.4 mg/dL (0.0-1.0)
[2020-01-25] MEDS ORDERED: FLUT12AE3 BC (21:26)
[2020-01-25] MEDS ORDERED: PRED5TAB PO (21:26)
[2020-01-25] MEDS ORDERED: AZEL137S7 NS (21:26)
[2020-01-25 22:29] VITALS: BP_SYST 153
[2020-01-25] MEDS ORDERED: ALBUTEROL MDI INHALATION 8 GM INH INH PRN (22:45)
[2020-01-25] MEDS ORDERED: LEVOFLOXACIN 500 MG/D5W 100 ML IV SCH (22:45)
[2020-01-25] MEDS ORDERED: INSULIN REGULAR, HUMAN 100 UNITS/ML, 10 ML VIAL (humuLIN R) SUBCUT PRN (22:45)
[2020-01-25] MEDS ORDERED: ALBUTEROL SULFATE 0.083% 2.5 MG/3 ML VIAL.NEB INH PRN (22:45)
[2020-01-25] MEDS: ALBUTEROL SULFATE 0.083% 2.5 MG/3 ML VIAL.NEB INH SCH (23:42)
[2020-01-25 23:43] VITALS: BP_SYST 137
[2020-01-26 00:30] VITALS: BP_SYST 126
[2020-01-26 03:32] VITALS: BP_SYST 153
[2020-01-26] MEDS: NORMAL SALINE 5 ML DISP.SYRIN IVF SCH ×3 (06:10→21:30)
[2020-01-26] MEDS: methylPREDNISolone SOD SUCC 40 MG/ML VIAL IVP SCH ×2 (06:12→13:37)
[2020-01-26 07:07] LABS: BASOPHILS % (AUTO) 0.1 % (0.0-2.0); HEMATOCRIT 32.7 % (36-48); HEMOGLOBIN 10.5 g/dL (12.0-16.0); LYMPHOCYTES # (AUTO) 0.8 K/uL (1.0-5.5); LYMPHOCYTES % (AUTO) 9.4 % (20.5-51.5); MEAN CORPUSCULAR HEMOGLOBIN 25 pg (27-31); MEAN CORPUSCULAR HGB CONC 32 % (32-36); MONOCYTES % (AUTO) 0.3 % (1.7-9.3); NEUTROPHILS # (AUTO) 7.6 K/uL (1.8-7.7); NEUTROPHILS % (AUTO) 90.2 % (40.0-70.0); PLATELET COUNT (AUTO) 228 K/uL (130-430); RED BLOOD CELL COUNT(AUTO) 4.24 MIL/uL (4.2-6.2); RED CELL DISTRIBUTION WIDTH 18.1 % (9.0-15.0); WHITE BLOOD COUNT (AUTO) 8.4 K/uL (4.8-10.8)
[2020-01-26] MEDS: ALBUTEROL SULFATE 0.083% 2.5 MG/3 ML VIAL.NEB INH SCH ×3 (07:21→20:06)
[2020-01-26 07:22] LABS: MEAN CORPUSCULAR VOLUME 77 fL (79.0-98.0)
[2020-01-26 07:55] LABS: ANION GAP 13 (5-15); CALCIUM 8.3 mg/dL (8.4-11.0); CHLORIDE 99 mmol/L (98-107); CREATININE 1.31 mg/dL (0.55-1.30); GLUCOSE 136 mg/dL (70-99); POTASSIUM 3.8 mmol/L (3.5-5.1); SODIUM SERUM 135 mmol/L (136-145); UREA NITROGEN, BLOOD 24 mg/dL (8-21)
[2020-01-26 07:56] VITALS: BP_SYST 132
[2020-01-26 07:56] LABS: ALANINE AMINOTRANSFERASE 27 U/L (12-78); ALBUMIN 3.2 g/dL (3.4-4.8); ASPARTATE AMINOTRANSFERASE 15 U/L (10-37); TOTAL BILIRUBIN 0.5 mg/dL (0.0-1.0)
[2020-01-26] MEDS: ASCORBIC ACID 500 MG TABLET PO SCH (08:19)
[2020-01-26] MEDS: METOPROLOL TARTRATE 50 MG TABLET PO SCH (08:19)
[2020-01-26] MEDS: FAMOTIDINE 20 MG TABLET PO SCH (08:20)
[2020-01-26] MEDS: LOSARTAN POTASSIUM 50 MG TABLET (COZAAR) PO SCH (08:20)
[2020-01-26] MEDS: HYDROCHLOROTHIAZIDE 25 MG TABLET (HCTZ) PO SCH (08:21)
[2020-01-26] MEDS ORDERED: PREDNISONE 5 MG TABLET PO SCH (09:00)
[2020-01-26] MEDS ORDERED: FLUTICASONE 250 mCg/SALMETEROL 50 mCg DISKUS W.DEV INH SCH (09:00)
[2020-01-26] MEDS ORDERED: ENOXAPARIN SODIUM 30 MG/0.3 ML SYRINGE SUBCUT ONE (09:00)
[2020-01-26 12:18] VITALS: BP_SYST 135
[2020-01-26] MEDS ORDERED: LOPERAMIDE HCL 2 MG CAPSULE PO PRN (15:30)
[2020-01-26] MEDS ORDERED: ONDANSETRON HCL 4 MG/2 ML VIAL IVP PRN (15:30)
[2020-01-26] MEDS: BUDESONIDE 0.5 MG/2 ML AMPUL.NEB INH SCH ×2 (15:57→20:06)
[2020-01-26 16:08] VITALS: BP_SYST 128
[2020-01-26 20:00] VITALS: BP_SYST 110
[2020-01-26] MEDS ORDERED: AZITHROMYCIN 500 MG in NS 250 ML IV SCH (21:00)
[2020-01-26] MEDS ORDERED: AZITHROMYCIN 500 MG/VIAL (ZITHROMAX) IV ONE (21:41)
[2020-01-26] MEDS ORDERED: ACETAMINOPHEN 325 MG TABLET PO ONE (22:45)
[2020-01-27 00:24] VITALS: BP_SYST 110
[2020-01-27] MEDS: ALBUTEROL SULFATE 0.083% 2.5 MG/3 ML VIAL.NEB INH SCH ×3 (01:23→12:46)
[2020-01-27 04:00] VITALS: BP_SYST 127
[2020-01-27] MEDS: NORMAL SALINE 5 ML DISP.SYRIN IVF SCH (06:22)
[2020-01-27] MEDS: BUDESONIDE 0.5 MG/2 ML AMPUL.NEB INH SCH (07:09)
[2020-01-27 08:04] VITALS: BP_SYST 121
[2020-01-27] MEDS: LOSARTAN POTASSIUM 50 MG TABLET (COZAAR) PO SCH (08:48)
[2020-01-27] MEDS: HYDROCHLOROTHIAZIDE 25 MG TABLET (HCTZ) PO SCH (08:48)
[2020-01-27] MEDS: ASCORBIC ACID 500 MG TABLET PO SCH (08:49)
[2020-01-27] MEDS: FAMOTIDINE 20 MG TABLET PO SCH (08:49)
[2020-01-27] MEDS: METOPROLOL TARTRATE 50 MG TABLET PO SCH (08:50)
[2020-01-27] MEDS ORDERED: LEVO500T89 PO (10:34)
[2020-01-27 11:37] VITALS: BP_SYST 121
== END 2020-01-27 13:40 | disposition home or self-care (01) | DRG 202 ==
LOC: SED 18:37 → STU 21:10
PROVIDERS: ADMIT Internal Medicine Hospice and Palliative Medicine; ATTEND Internal Medicine Hospice and Palliative Medicine
DX: J45.901 Unspecified asthma with (acute) exacerbation (principal); J44.1 Chronic obstructive pulmonary disease with (acute) exacerbation; N17.9 Acute kidney failure, unspecified; E11.9 Type 2 diabetes mellitus without complications; E78.00 Pure hypercholesterolemia, unspecified; D50.9 Iron deficiency anemia, unspecified; M19.90 Unspecified osteoarthritis, unspecified site; E66.9 Obesity, unspecified; Z83.3 Family history of diabetes mellitus; Z90.710 Acquired absence of both cervix and uterus; Z88.6 Allergy status to analgesic agent; Z88.1 Allergy status to other antibiotic agents; Z88.0 Allergy status to penicillin; Z88.8 Allergy status to other drugs, medicaments and biological substances; Z79.2 Long term (current) use of antibiotics; Z79.82 Long term (current) use of aspirin; Z79.899 Other long term (current) drug therapy; Z68.36 Body mass index [BMI] 36.0-36.9, adult
CPT/HCPCS: 36415; 36600; 71045; 80053; 82803-TC; 82962; 83880; 84484; 85025; 85610-TC; 85730-TC; 93005; 93306; 94640; 94760; 96374; 99285; G0378; J0456; J1030; J1650; J2405; J2930; J7050; J7613; J7626